=== PATIENT | female | born 1990 | race Caucasian/White ===

== ENCOUNTER 2018-12-06 17:17 | Emergency (ER) | payer OTHER ==
[2018-12-06 17:20] VITALS: BP 103/58; PULSE 60; TEMP 98; BMI 27.4
--- NOTE | 2018-12-06 20:39 | PDOC ---
History of Present Illness - General History Source: Patient Exam Limitations: No Limitations - History of Present Illness Initial Comments: 12/06/18 20:45 <Yan Owens - Last Filed: 12/06/18 20:54> - History of Present Illness Initial Comments: 12/06/18 21:33 The patient is a 28 year old female presenting with her friend, with no significant past medical history, who presents to the ED complaining of bilateral ear pain for the past week. She notes that her left ear is worse than her right ear. She reports the pain is much worse when she wears her head phones. Also reports itching to both ears, especially at night. Denies discharge from the ears. She denies any sick contacts or recent travel. She notes that she used over the counter ear drops which has not relieved her pain. The patient denies headache, focal weakness/numbness, chest pain, shortness of breath and dizziness. Denies fever, nausea, vomiting, diarrhea or constipation. Allergies: None Past surgical history: None reported Social History: No alcohol, tobacco or drug use reported <Jocelynn Casey - Last Filed: 12/06/18 21:46> - General Chief Complaint: Ear Problem Stated Complaint: LEFT EAR PAIN Time Seen by Provider: 12/06/18 17:40 Past History <Yan Owens - Last Filed: 12/06/18 20:54> - Past Medical History COPD: No - Suicide/Smoking/Psychosocial Hx Smoking History: Never smoked Information on smoking cessation initiated: No Hx Alcohol Use: No Drug/Substance Use Hx: No <Jocelynn Casey - Last Filed: 12/06/18 21:46> - Past Medical History Allergies/Adverse Reactions: Allergies Allergy/AdvReac Type Severity Reaction Status Date / Time No Known Allergies Allergy Verified 12/06/18 17:17 Home Medications: Ambulatory Orders Neomycin/Polymyxn/Hc [Cortisporin Otic Suspenstion -] 5 drop AU BID 14 Days #1 bottle 12/06/18 Review of Systems - Review of Systems Able to Perform ROS?: Yes Comments:: 12/06/18 20:45 <Yan Owens - Last Filed: 12/06/18 20:54> - Review of Systems Comments:: 12/06/18 21:35 GENERAL/CONSTITUTIONAL: No fever or chills. No weakness. HEAD, EYES, EARS, NOSE AND THROAT: (+) Bilateral ear pain and itching. No change in vision. No ear discharge. No sore throat. GASTROINTESTINAL: No nausea, vomiting, diarrhea or constipation. GENITOURINARY: No dysuria, frequency, or change in urination. CARDIOVASCULAR: No chest pain or shortness of breath. RESPIRATORY: No cough, wheezing, or hemoptysis. MUSCULOSKELETAL: No joint or muscle swelling or pain. No neck or back pain. SKIN: No rash NEUROLOGIC: No headache, vertigo, loss of consciousness, or change in strength/ sensation. ENDOCRINE: No increased thirst. No abnormal weight change. HEMATOLOGIC/LYMPHATIC: No anemia, easy bleeding, or history of blood clots. ALLERGIC/IMMUNOLOGIC: No hives or skin allergy. <Jocelynn Casey - Last Filed: 12/06/18 21:46> *Physical Exam - Vital Signs Last Vital Signs Temp Pulse Resp BP Pulse Ox 98.0 F 60 15 103/58 L 99 12/06/18 17:17 12/06/18 17:17 12/06/18 17:17 12/06/18 17:17 12/06/18 17:17 - Physical Exam Comments: 12/06/18 20:46 <Yan Owens - Last Filed: 12/06/18 20:54> - Vital Signs Last Vital Signs Temp Pulse Resp BP Pulse Ox 98.0 F 60 15 103/58 L 99 12/06/18 17:17 12/06/18 17:17 12/06/18 17:17 12/06/18 17:17 12/06/18 17:17 - Physical Exam Comments: 12/06/18 21:35 GENERAL: Awake, alert, and fully oriented, in no acute distress EYES: PERRLA, EOMI, sclera anicteric, conjunctiva clear ENT: b/l external ear canal with scaly, flaky mildly erythematous plaques. Internal ear canal with no erythema. TM with normal light reflex, visible bony anatomy, no effusions or perforations NECK: Normal ROM, supple, no lymphadenopathy LUNGS: Breath sounds equal, clear to auscultation bilaterally. No wheezes, and no crackles HEART: Regular rate and rhythm, normal S1 and S2, no murmurs, rubs or gallops ABDOMEN: Soft, nontender, normoactive bowel sounds. No guarding, no rebound. No masses EXTREMITIES: Normal range of motion, no edema. NEUROLOGICAL: Normal speech, cranial nerves intact, equal strength and sensation b/l SKIN: Warm, Dry, normal turgor, no rashes or lesions noted. <Jocelynn Casey - Last Filed: 12/06/18 21:46> Moderate Sedation - Procedure Monitoring Vital Signs: Procedure Monitoring Vital Signs Temperature 98.0 F 12/06/18 17:17 Pulse Rate 60 12/06/18 17:17 Respiratory Rate 15 12/06/18 17:17 Blood Pressure 103/58 L 12/06/18 17:17 O2 Sat by Pulse Oximetry (%) 99 12/06/18 17:17 <Yan Owens - Last Filed: 12/06/18 20:54> - Procedure Monitoring Vital Signs: Procedure Monitoring Vital Signs Temperature 98.0 F 12/06/18 17:17 Pulse Rate 60 12/06/18 17:17 Respiratory Rate 15 12/06/18 17:17 Blood Pressure 103/58 L 12/06/18 17:17 O2 Sat by Pulse Oximetry (%) 99 12/06/18 17:17 <Jocelynn Casey - Last Filed: 12/06/18 21:46> Medical Decision Making - Medical Decision Making 12/06/18 21:37 28yo F presents to the ED with b/l external otits. No evidence of active bacterial infection. Vitals wnl. Will treat with corticosporin suspension and refer to ENT. Pt in agreement with plan. I discussed the physical exam findings, ancillary test results and final diagnoses with the patient. I answered all of the patient's questions. The patient was satisfied with the care received and felt comfortable with the discharge plan and treatment plan. The patient will call their primary care physician within 24 hours to arrange follow-up and will return to the Emergency Department with any new, persistent or worsening symptoms. <Jocelynn Casey - Last Filed: 12/06/18 21:46> *DC/Admit/Observation/Transfer - Attestations Scribe Attestion: 12/06/18 20:46 Documentation prepared by Yan Owens, acting as medical insurance claims specialist for Jocelynn Casey MD <RomanYan - Last Filed: 12/06/18 20:54> - Attestations Physician Attestion: 12/06/18 20:41 I, Dr. Jocelynn Casey MD, attest that this document has been prepared under my direction and personally reviewed by me in its entirety. I further attest, that it accurately reflects all work, treatment, procedures and medical decision -making performed by me. <Jocelynn Casey - Last Filed: 12/06/18 21:46> Diagnosis at time of Disposition: Otitis externa of both ears, Ear pain, Ear itching - Discharge Dispostion Disposition: HOME Condition at time of disposition: Stable - Prescriptions Prescriptions: Neomycin/Polymyxn/Hc [Cortisporin Otic Suspenstion -] 5 drop AU BID 14 Days #1 bottle - Referrals Referrals: Candido Kraft MD [Staff Physician] - - Patient Instructions Printed Discharge Instructions: DI for Otitis Externa Additional Instructions: Follow up with Dr. Kraft (ear, nose, and throat specialist) within 1-2 weeks Take the ear drops as prescribed Return to the nearest emergency department if you have any new, worsening, or concerning symptoms Print Language: SPA
== END 2018-12-06 21:47 | disposition home or self-care (01) ==
LOC: FER 17:17
DX: H60.93 Unspecified otitis externa, bilateral (principal)
CPT/HCPCS: 99281-25